=== PATIENT | male | born 1965 | race Caucasian/White ===

== ENCOUNTER 2017-07-27 14:16 | Day surgery (SDC) | payer BC ==
[2017-07-20 16:55] LABS: BASOPHILS % (AUTO) 0.3 % (0-1); EOSINOPHILS # (AUTO) 0.1 X10'3 (0-0.9); EOSINOPHILS % (AUTO) 1.9 % (0-6); HEMATOCRIT 51.2 % (42.0-52.0); HEMOGLOBIN 17.6 g/dl (14.0-17.9); LYMPHOCYTES # (AUTO) 1.2 X10'3 (1.1-4.8); LYMPHOCYTES % (AUTO) 16.1 % (21-51); MEAN CORPUSCULAR HEMOGLOBIN 31.9 PG (27.0-31.0); MEAN CORPUSCULAR HGB CONC 34.4 % (33.0-36.5); MEAN CORPUSCULAR VOLUME 92.6 FL (78-98); MEAN PLATELET VOLUME 8.4 FL (7.4-10.4); MONOCYTES # (AUTO) 0.7 X10'3 (0-0.9); MONOCYTES % (AUTO) 9.1 % (2-12); NEUTROPHILS # (AUTO) 5.4 X10'3 (1.8-7.7); NEUTROPHILS % (AUTO) 72.6 % (42-75); PLATELET COUNT 145 X10'3 (140-440); RED BLOOD COUNT 5.53 X10'6 (4.70-6.10); WHITE BLOOD COUNT 7.5 X10'3 (4.5-11.0)
[2017-07-20 17:01] LABS: ALBUMIN 3.8 G/DL (3.4-5.0); ANION GAP 8 (8-16); BLOOD UREA NITROGEN 15 MG/DL (7-18); BUN/CREATININE RATIO 11.2 (5.4-32.0); CALCIUM 8.7 MG/DL (8.5-10.1); CHLORIDE 104 MMOL/L (99-107); CREATININE 1.34 MG/DL (0.60-1.10); GLUCOSE 91 MG/DL (70-104); SODIUM 142 MMOL/L (135-145); TOTAL CARBON DIOXIDE 30.4 MMOL/L (24-32); eGFR 56 ML/MIN
[2017-07-20 17:03] LABS: INR 1.1 INR; PARTIAL THROMBOPLASTIN TIME 26 SECONDS (22-32); PROTHROMBIN TIME 11.7 SECONDS (9.0-12.0)
[~2017-07-27] VITALS: Ht 180.3 cm; Wt 118.2 kg
[2017-07-27] VITALS (8 sets, daily range): BP systolic 142–194; BP diastolic 92–140
[2017-07-27] MEDS ORDERED: LORazepam 0.5 MG tablet PO PRN (14:35)
[2017-07-27] MEDS ORDERED: normal saline 1000ml 1,000 ML IV SCH ×2 (14:35→19:05)
[2017-07-27] MEDS ORDERED: diphenhydrAMINE 25mg capsule PO PRN (14:35)
[2017-07-27] MEDS ORDERED: METO25TA6 PO (14:55)
[2017-07-27] MEDS ORDERED: FLO0.4C PO (14:55)
[2017-07-27] MEDS ORDERED: NITR0.4T51 SL (14:55)
[2017-07-27] MEDS ORDERED: FURO-150 PO (14:55)
[2017-07-27] MEDS ORDERED: ASPI-12 PO (14:55)
[2017-07-27] MEDS ORDERED: ATOR20TA PO (14:55)
[2017-07-27] MEDS ORDERED: AZIL1TAB2 PO (14:55)
[2017-07-27] MEDS ORDERED: LIDOcaine 1% (10mg/ml) 2ml vial ONE (15:32)
[2017-07-27] MEDS ORDERED: fentaNYL/PF 50MCG/1 ML 2ML syringe ONE (16:40)
[2017-07-27] MEDS ORDERED: midazolam 2 mg/2 ml injection ONE ×2 (16:41→17:57)
[2017-07-27] MEDS ORDERED: iohexol 350MG/ML 100ml bottle IV ONE (17:18)
[2017-07-27] MEDS ORDERED: LIDOcaine 1% 30ml preserv. free vial ONE (17:19)
[2017-07-27] MEDS ORDERED: hydrALAZINE 20mg/ml inj. IV ONE (18:04)
[2017-07-27] MEDS ORDERED: OXAZEpam 15mg capsule PO PRN (19:05)
[2017-07-27] MEDS ORDERED: ondansetron/PF 4mg/2ml inj IV PRN (19:05)
[2017-07-27] MEDS ORDERED: proCHLORperazine 10 MG/2 ml inj IV PRN (19:05)
== END 2017-07-27 20:30 | disposition home or self-care (01) ==
LOC: SSTAY O 14:16
PROVIDERS: ATTEND Internal Medicine Interventional Cardiology
DX: I25.118 Atherosclerotic heart disease of native coronary artery with other forms of angina pectoris (principal); I10 Essential (primary) hypertension; E78.5 Hyperlipidemia, unspecified; G47.33 Obstructive sleep apnea (adult) (pediatric); N40.0 Benign prostatic hyperplasia without lower urinary tract symptoms; Z72.89 Other problems related to lifestyle; Z79.01 Long term (current) use of anticoagulants; Z79.82 Long term (current) use of aspirin; Z85.820 Personal history of malignant melanoma of skin; Z79.899 Other long term (current) drug therapy; Z98.890 Other specified postprocedural states
CPT/HCPCS: 36415; 80048; 85025; 85610; 85730; 93005; 93458; 99152; A6257; C1769; J0360; J1644; J2250; J3010; J3490; J7030; Q0163; Q9967; A4620

== ENCOUNTER 2019-04-17 17:49 | Inpatient (IN) | payer BC, OTHER ==
[~2019-04-17] VITALS: Ht 180.3 cm; Wt 117.3 kg
[~2019-04-17 17:49] MED LIST: ASPI-12 PO; ATOR20TA PO; AZIL1TAB2 PO; FLO0.4C PO; FURO-150 PO; METO25TA6 PO; NITR0.4T51 SL
[2019-04-17 18:55] LABS: BASOPHILS % (AUTO) 0.1 % (0-1); EOSINOPHILS # (AUTO) 0.1 X10'3 (0-0.9); EOSINOPHILS % (AUTO) 0.5 % (0-6); HEMATOCRIT 55.1 % (42.0-52.0); LYMPHOCYTES # (AUTO) 0.9 X10'3 (1.1-4.8); LYMPHOCYTES % (AUTO) 5.9 % (21-51); MEAN CORPUSCULAR HEMOGLOBIN 34.5 PG (27.0-31.0); MEAN CORPUSCULAR HGB CONC 34.8 g/dL (33.0-36.5); MEAN CORPUSCULAR VOLUME 99.3 FL (78-98); MEAN PLATELET VOLUME 8.1 FL (7.4-10.4); MONOCYTES # (AUTO) 1.3 X10'3 (0-0.9); MONOCYTES % (AUTO) 9.2 % (2-12); NEUTROPHILS # (AUTO) 12.4 X10'3 (1.8-7.7); NEUTROPHILS % (AUTO) 84.3 % (42-75); PLATELET COUNT 190 X10'3 (140-440); RED BLOOD COUNT 5.54 X10'6 (4.70-6.10); RED CELL DISTRIBUTION WIDTH 13.5 % (11.5-14.5); WHITE BLOOD COUNT 14.6 X10'3 (4.5-11.0)
[2019-04-17 19:03] LABS: HEMOGLOBIN 19.1 g/dl (14.0-17.9)
[2019-04-17 19:09] LABS: ALANINE AMINOTRANSFERASE 105 U/L (12-78); ALKALINE PHOSPHATASE 82 IU/L (46-116); ANION GAP 12 (8-16); ASPARTATE AMINO TRANSFERASE 62 U/L (10-37); BILIRUBIN,TOTAL 0.9 MG/DL (0.1-1.0); BLOOD UREA NITROGEN 11 MG/DL (7-18); BUN/CREATININE RATIO 8.9 (5.4-32.0); CALCIUM 8.9 MG/DL (8.5-10.1); CHLORIDE 99 MMOL/L (99-107); CREATININE 1.23 MG/DL (0.60-1.10); GLUCOSE 140 MG/DL (70-104); POTASSIUM 3.6 MMOL/L (3.5-5.1); SODIUM 137 MMOL/L (135-145); TOTAL CARBON DIOXIDE 26.1 MMOL/L (24-32); TOTAL PROTEIN 7.9 G/DL (6.4-8.2); eGFR 62 ML/MIN
[2019-04-17 19:18] LABS: LIPASE 1298 U/L (73-393)
[2019-04-17] MEDS ORDERED: morphine 4 MG/ML inj SYRINge IV ONE (20:15)
[2019-04-17] MEDS ORDERED: ondansetron/PF 4mg/2ml inj IV ONE (20:15)
[2019-04-17 20:53] LABS: TROPONIN I < 0.04 NG/ML (0.0-0.05)
[2019-04-17] MEDS ORDERED: normal saline 1000ML IV soln IVB ONE (21:05)
[2019-04-17] MEDS ORDERED: furosemide 10 MG/1 ML 10ml inj IV ONE (21:10)
[2019-04-17 21:15] LABS: CLARITY,URINE CLEAR (Clear); COLOR,URINE YELLOW (Yellow); GLUCOSE, URINE NEGATIVE (Neg); KETONES,URINE 15 mg/dl (Neg); LEUKOCYTE ESTERASE ,URINE NEGATIVE (Neg); NITRITES, URINE NEGATIVE (Neg); OCCULT BLOOD,URINE TRACE-INTACT (Neg); PROTEIN,URINE 100 mg/dl (Neg); UROBILINOGEN,URINE 0.2 E.U/dL (0.2-1.0)
[2019-04-17 21:16] LABS: UA COLLECTION TYPE URINAL
[2019-04-17 21:22] LABS: URINE AMPHETAMINE SCREEN NEGATIVE (Neg); URINE BARBITUATE SCREEN NEGATIVE (Neg); URINE BENZODIAZEPINES SCREEN NEGATIVE (Neg); URINE CANNABINOID SCREEN NEGATIVE (Neg); URINE COCAINE SCREEN NEGATIVE (Neg); URINE METHADONE SCREEN NEGATIVE (Neg); URINE OPIATE SCREEN NEGATIVE (Neg); URINE PHENCYCLIDINE SCREEN NEGATIVE (Neg)
[2019-04-17 21:33] LABS: BACTERIA,URINE NONE SEEN /HPF (Neg); MUCUS STRANDS FEW /LPF (Neg); RBC,URINE 0-2 /HPF (0-2); SQUAMOUS EPITHELIAL CELL,UR FEW /LPF (FEW); WBC,URINE 0-4 /HPF (0-4)
--- NOTE | 2019-04-17 21:54 | NUR ---
cory reddy reports pt to be admitted.
[2019-04-17] MEDS ORDERED: LORazepam 2 mg/ml vial IV ONE (21:55)
[2019-04-17] MEDS ORDERED: NO HOME MEDS (21:58)
[2019-04-17] MEDS ORDERED: GABA600T13 PO (22:11)
[2019-04-17] MEDS ORDERED: PANT-47 PO (22:11)
[2019-04-17] MEDS ORDERED: ASPI-1094 PO (22:11)
[2019-04-17] MEDS ORDERED: BUSP10TA11 PO (22:11)
[2019-04-17] MEDS ORDERED: BACL20TA PO (22:11)
--- NOTE | 2019-04-17 22:47 | NUR ---
DR. GILL AT [facility] FOR ADMISSION. PT GIVEN ATIVAN 1 MG FOR ANXIETY. PT REPORTS HEAVY DRINKING OF ETOH OVER PAST MONTH AND 1/2. BP REMAINS ZANE 205/150 W HR 112
[2019-04-17] MEDS ORDERED: ondansetron/PF 4mg/2ml inj IV PRN (23:00)
[2019-04-17] MEDS ORDERED: thiamine inj. 100 MG in normal saline 100ml IV soln 100 ML IV ONE (23:05)
[2019-04-17] MEDS ORDERED: LORazepam 2 mg/ml vial IV PRN (23:05)
[2019-04-17] MEDS ORDERED: diltiazem-NS 100mg/100ml 100 ML IV SCH (23:05)
[2019-04-17] MEDS ORDERED: nitroGLYCERIN 0.4mg/hour patch TD ONE (23:35)
[2019-04-18] VITALS (21 sets, daily range): BP systolic 139–182; BP diastolic 60–125
--- NOTE | 2019-04-18 00:15 | NUR ---
Dr. Parks at bedside stated that patient required theraptic phlebotomy and requied 450ml of blood to be removed. 16G IV placed 15 30ml removed and dicarded. Patient remined stable throughtout.
[2019-04-18] MEDS: LORazepam 2 mg/ml vial IV PRN ×2 (00:16→04:22)
[2019-04-18] MEDS: morphine 2 MG/ML inj. syringe IV PRN ×2 (00:19→20:06)
--- NOTE | 2019-04-18 01:44 | NUR ---
Patient arrived on unit at approximately 0100. Vital signs are 98.5, HR 126, 97% RA, RR 24, Bp 182/111. Charly is aware, will continue to monitor.
--- NOTE | 2019-04-18 01:54 | NUR ---
Updated Dr. Parks of patient current vital signs. See vitals charted in vitals intervention.
[2019-04-18] MEDS ORDERED: diltiazem-NS 100mg/100ml 100 ML IV SCH (03:24)
--- NOTE | 2019-04-18 04:27 | NUR ---
Updated Dr. Parks on patient's HR sustaining 120's. He is ok with patient having this HR for now due to his alcoholism. He is also aware of the patient's BP and is ok with these numbers at this time. Will continue to monitor.
[2019-04-18 05:55] LABS: BASOPHILS % (AUTO) 0.3 % (0-1); EOSINOPHILS # (AUTO) 0.1 X10'3 (0-0.9); EOSINOPHILS % (AUTO) 0.9 % (0-6); HEMATOCRIT 48.3 % (42.0-52.0); HEMOGLOBIN 16.9 g/dl (14.0-17.9); LYMPHOCYTES # (AUTO) 0.9 X10'3 (1.1-4.8); LYMPHOCYTES % (AUTO) 6.4 % (21-51); MEAN CORPUSCULAR HEMOGLOBIN 34.8 PG (27.0-31.0); MEAN CORPUSCULAR HGB CONC 35.1 g/dL (33.0-36.5); MEAN CORPUSCULAR VOLUME 99.2 FL (78-98); MEAN PLATELET VOLUME 7.9 FL (7.4-10.4); MONOCYTES # (AUTO) 1.2 X10'3 (0-0.9); MONOCYTES % (AUTO) 8.8 % (2-12); NEUTROPHILS # (AUTO) 11.3 X10'3 (1.8-7.7); NEUTROPHILS % (AUTO) 83.6 % (42-75); PLATELET COUNT 165 X10'3 (140-440); RED BLOOD COUNT 4.87 X10'6 (4.70-6.10); RED CELL DISTRIBUTION WIDTH 13.8 % (11.5-14.5); WHITE BLOOD COUNT 13.5 X10'3 (4.5-11.0)
--- NOTE | 2019-04-18 06:20 | NUR ---
Problems reprioritized. Patient report given, questions answered & plan of care reviewed with ARIANA Oglesby.
--- NOTE | 2019-04-18 06:24 | NUR ---
Patient in room PCU 3024A. I have received report from Juhi LANE and had the opportunity to ask questions and assume patient care.
[2019-04-18 06:31] LABS: ALBUMIN 3.3 G/DL (3.4-5.0); ANION GAP 10 (8-16); BLOOD UREA NITROGEN 13 MG/DL (7-18); BUN/CREATININE RATIO 10.4 (5.4-32.0); CALCIUM 8.1 MG/DL (8.5-10.1); CHLORIDE 100 MMOL/L (99-107); CREATININE 1.25 MG/DL (0.60-1.10); GLUCOSE 135 MG/DL (70-104); LIPASE 852 U/L (73-393); POTASSIUM 3.8 MMOL/L (3.5-5.1); SODIUM 137 MMOL/L (135-145); TOTAL CARBON DIOXIDE 26.7 MMOL/L (24-32); eGFR 61 ML/MIN
[2019-04-18] MEDS: heparin, porcine 5000 units/ml vial SQ SCH ×2 (07:21→19:55)
[2019-04-18] MEDS: pantoprazole 40 MG vial IV SCH ×2 (07:21→19:55)
[2019-04-18] MEDS: baclofen 10mg tablet PO SCH ×3 (07:30→19:54)
[2019-04-18] MEDS: aspirin 325mg tablet, delayed-release (Ecotrin) PO SCH ×2 (07:30→09:19)
[2019-04-18] MEDS: gabapentin 300mg capsule PO SCH ×4 (07:30→20:41)
[2019-04-18] MEDS ORDERED: busPIRone 5mg tablet PO SCH (08:00)
--- NOTE | 2019-04-18 08:15 | NUR ---
Aj Ruiz MD PAGER ID: [phone] MESSAGE: Reny HUNT. Devonte Ochoa [phone]. Pt is requesting to eat. NPO from ED, they did a PO challenge and he said he tolerated applesauce and jello without vomiting. Would you like a diet order or keep NPO?
--- NOTE | 2019-04-18 08:20 | NUR ---
Spoke with Dr. Rocha regarding patients request for a diet. New orders: Clear Liquid Diet, patient to consume slowly if any pain is noted stop consuming the clear liquids and notify MD. Will inform the primary RN Reny.
[2019-04-18] MEDS ORDERED: LORazepam 1 MG tablet PO PRN (09:10)
--- NOTE | 2019-04-18 11:20 | NUR ---
Paged Dr Rocha PAGER ID: [phone] MESSAGE: Reny HUNT. Devonte Ochoa [phone]. Pt is requesting order for medication you had spoken to him earlier about for his hiccups. Thank you!
[2019-04-18] MEDS ORDERED: chlorproMAZINE 25mg/ml inj. IM PRN (11:35)
[2019-04-18] MEDS ORDERED: chlorproMAZINE 25mg tablet PO PRN (11:35)
[2019-04-18] MEDS ORDERED: CHLORPROMAZINE IV PRN (12:05)
[2019-04-18] MEDS ORDERED: NORMAL SALINE IV PRN (12:05)
[2019-04-18] MEDS: diltiazem 30mg tablet PO SCH ×3 (12:38→23:11)
--- NOTE | 2019-04-18 12:38 | NUR ---
New orders from Dr Rocha for Cardizem PO 30 mg every 8 hrs, starting now; new order for cardizem gtt at 5 ml/hr down from 10ml/hr; and labetalol 10 mg IV q10 min for SBP> 160 and diastolic >100 Addendum: 04/18/19 at 1302 by Reny Nina RN CORRECTION. LABETALOL PARAMETERS ARE FOR SBP>160 OR DIASTOLIC >100
[2019-04-18] MEDS: labetalol 20mg/4ml (5mg/ml) syringe IV PRN ×4 (12:42→23:12)
[2019-04-18] MEDS ORDERED: magnesium hydroxide 30ml (MOM) UD suspension PO PRN (13:05)
--- NOTE | 2019-04-18 13:10 | NUR ---
Patients BP is 159/111, primary RN Reny has requested the PRN Labetolol 10mg (2mL) IVP be given to patient. Labetolol was given at 1307 but the medication scan did not save. Will inform the primary RN and continue to monitor patient until RN is back from lunch.
--- NOTE | 2019-04-18 14:36 | NUR ---
Resource nurse changed Cardizem gtt to 5 mls from 10 per MD order, and now order from MD to D/C gtt entirely. ONLY wanted the 30 mg Cardizem tab at 12:38 pm and then q8hrs from then, not a PO one hour before discontinuing gtt.
--- NOTE | 2019-04-18 18:33 | NUR ---
Problems reprioritized. Patient report given, questions answered & plan of care reviewed with Monik LANE.
--- NOTE | 2019-04-18 18:40 | NUR ---
Patient in room PCU 3024. I have received report from ARIANA Oglesby and had the opportunity to ask questions and assume patient care.
[2019-04-18] MEDS: docusate sod 100mg capsule PO SCH (19:54)
[2019-04-18] MEDS: busPIRone 5mg tablet PO SCH (20:41)
[2019-04-19] VITALS (11 sets, daily range): BP systolic 137–177; BP diastolic 89–126
[2019-04-19] MEDS: labetalol 20mg/4ml (5mg/ml) syringe IV PRN ×7 (01:39→23:14)
[2019-04-19] MEDS: LORazepam 2 mg/ml vial IV PRN ×2 (01:40→19:45)
--- NOTE | 2019-04-19 03:20 | NUR ---
PRN Labetalol given per MD order for high diastolic BPs: @2008 for BP of 154/125 @2312 for BP of 149/101 @0139 for BP of 158/110 Most recent result @0230 is 137/89. Past Results are recorded in routine vital signs section Will continue to monitor closely.
[2019-04-19] MEDS ORDERED: diltiazem-NS 100mg/100ml 100 ML IV SCH (03:24)
[2019-04-19 06:06] LABS: BASOPHILS % (AUTO) 0.4 % (0-1); EOSINOPHILS # (AUTO) 0.4 X10'3 (0-0.9); EOSINOPHILS % (AUTO) 3.9 % (0-6); HEMATOCRIT 43.8 % (42.0-52.0); HEMOGLOBIN 15.2 g/dl (14.0-17.9); LYMPHOCYTES % (AUTO) 11.1 % (21-51); MEAN CORPUSCULAR HGB CONC 34.6 g/dL (33.0-36.5); MEAN CORPUSCULAR VOLUME 101.1 FL (78-98); MEAN PLATELET VOLUME 8.1 FL (7.4-10.4); MONOCYTES % (AUTO) 10.8 % (2-12); NEUTROPHILS % (AUTO) 73.8 % (42-75); PLATELET COUNT 132 X10'3 (140-440); RED BLOOD COUNT 4.34 X10'6 (4.70-6.10); RED CELL DISTRIBUTION WIDTH 13.6 % (11.5-14.5); WHITE BLOOD COUNT 9.5 X10'3 (4.5-11.0)
[2019-04-19 06:37] LABS: ALANINE AMINOTRANSFERASE 55 U/L (12-78); ALBUMIN 2.9 G/DL (3.4-5.0); ALBUMIN/GLOBULIN RATIO 0.9 (1.1-1.5); ALKALINE PHOSPHATASE 56 IU/L (46-116); ANION GAP 6 (8-16); ASPARTATE AMINO TRANSFERASE 27 U/L (10-37); BILIRUBIN,TOTAL 0.8 MG/DL (0.1-1.0); BLOOD UREA NITROGEN 14 MG/DL (7-18); BUN/CREATININE RATIO 9.2 (5.4-32.0); CHLORIDE 102 MMOL/L (99-107); CREATININE 1.53 MG/DL (0.60-1.10); GLUCOSE 103 MG/DL (70-104); LIPASE 415 U/L (73-393); POTASSIUM 3.4 MMOL/L (3.5-5.1); SODIUM 140 MMOL/L (135-145); TOTAL CARBON DIOXIDE 31.6 MMOL/L (24-32); TOTAL PROTEIN 6.3 G/DL (6.4-8.2); eGFR 48 ML/MIN
--- NOTE | 2019-04-19 06:44 | NUR ---
Patient in room PCU 3024. I have received report from ARIANA Baca and had the opportunity to ask questions and assume patient care.
--- NOTE | 2019-04-19 06:55 | NUR ---
Patient in room PCU 3024. I have received report from ARIANA HERRON and had the opportunity to ask questions and assume patient care.
--- NOTE | 2019-04-19 07:30 | NUR ---
PAGER ID: [phone] MESSAGE: DR. JUNIOR, 3907Z/JEF, K+ 3,4. NO ORDERS TO RPLACE. TRISTON [id number]. TY
[2019-04-19] MEDS: K and/or MAG REPLACEMENT MC SCH ×2 (08:05→20:00)
[2019-04-19] MEDS ORDERED: potassium Cl 20 mEq SR tablet PO PRN (08:05)
[2019-04-19] MEDS ORDERED: magnesium 4gm in 100ml NS 100 ML IV PRN (08:05)
[2019-04-19] MEDS ORDERED: potassium CL 10mEq/100ml bag 100 ML IV PRN (08:05)
[2019-04-19] MEDS ORDERED: magnesium Cl slow-release 64mg tablet PO PRN (08:05)
[2019-04-19] MEDS ORDERED: magnesium 2GM in 50ml NS 50 ML IV PRN (08:05)
[2019-04-19] MEDS: pantoprazole 40 MG vial IV SCH ×2 (08:15→19:45)
[2019-04-19] MEDS: aspirin 325mg tablet, delayed-release (Ecotrin) PO SCH (08:16)
[2019-04-19] MEDS: docusate sod 100mg capsule PO SCH ×2 (08:16→19:44)
[2019-04-19] MEDS: baclofen 10mg tablet PO SCH ×2 (08:16→19:44)
[2019-04-19] MEDS: diltiazem 30mg tablet PO SCH ×3 (08:16→23:14)
[2019-04-19] MEDS: gabapentin 300mg capsule PO SCH ×3 (08:18→21:30)
[2019-04-19] MEDS: heparin, porcine 5000 units/ml vial SQ SCH ×2 (08:19→19:44)
[2019-04-19] MEDS: potassium Cl 20 mEq SR tablet PO PRN ×3 (08:29→17:43)
[2019-04-19] MEDS: amLODIPine 5mg tablet PO SCH (14:09)
--- NOTE | 2019-04-19 14:15 | NUR ---
AT 1245, BP 178/112, LABETOLOL 10MG IV ADM, BP AT 1255 161/106, SECOND DOSE ADM.1320 BP 165/114, 3RD DOSE ADM, 1350 BP 159/113, 4TH DOSE ADM, DR. JUNIOR IN, 1410 BP 160/117. PO NORVASC ADM. CARDIZEM DOSE INCREASED. WILL CONTINUE TO MONITOR, ALLOW PO MEDS TO ASSIMILATE.
--- NOTE | 2019-04-19 17:48 | NUR ---
PAGER ID: [phone] MESSAGE: DR. JUNIOR, 1998B/JEF WAS UNDER IMPRESSION YOU WERE GOING TO CHANGE HIS DIET ORDER? REMAINS CLEAR LIQUID FOR DINNER. TRISTON [id number], TY
--- NOTE | 2019-04-19 18:23 | NUR ---
Patient in room PCU 3024. I have received report from ARIANA Baca and had the opportunity to ask questions and assume patient care.
[2019-04-19] MEDS ORDERED: ipratropium/albuterol 3ml nebule NEB PRN (18:30)
--- NOTE | 2019-04-19 18:30 | NUR ---
Problems reprioritized. Patient report given, questions answered & plan of care reviewed with ARIANA HERRON.
[2019-04-19] MEDS: morphine 2 MG/ML inj. syringe IV PRN ×2 (19:44→23:25)
[2019-04-19] MEDS: busPIRone 5mg tablet PO SCH (21:30)
[2019-04-19] MEDS ORDERED: LORazepam 2 mg/ml vial IV PRN (23:05)
[2019-04-20] VITALS (7 sets, daily range): BP systolic 139–164; BP diastolic 98–112
[2019-04-20] MEDS: labetalol 20mg/4ml (5mg/ml) syringe IV PRN ×3 (02:31→04:40)
[2019-04-20] MEDS: morphine 2 MG/ML inj. syringe IV PRN (03:59)
[2019-04-20] MEDS: LORazepam 2 mg/ml vial IV PRN ×2 (03:59→15:15)
[2019-04-20 05:14] LABS: BASOPHILS % (AUTO) 0.3 % (0-1); EOSINOPHILS # (AUTO) 0.3 X10'3 (0-0.9); EOSINOPHILS % (AUTO) 4.4 % (0-6); HEMATOCRIT 43.2 % (42.0-52.0); HEMOGLOBIN 14.8 g/dl (14.0-17.9); LYMPHOCYTES % (AUTO) 14.6 % (21-51); MEAN CORPUSCULAR HEMOGLOBIN 34.6 PG (27.0-31.0); MEAN CORPUSCULAR HGB CONC 34.2 g/dL (33.0-36.5); MEAN PLATELET VOLUME 7.9 FL (7.4-10.4); MONOCYTES # (AUTO) 0.8 X10'3 (0-0.9); MONOCYTES % (AUTO) 11.1 % (2-12); NEUTROPHILS # (AUTO) 4.9 X10'3 (1.8-7.7); NEUTROPHILS % (AUTO) 69.6 % (42-75); PLATELET COUNT 144 X10'3 (140-440); RED BLOOD COUNT 4.28 X10'6 (4.70-6.10); RED CELL DISTRIBUTION WIDTH 13.3 % (11.5-14.5); WHITE BLOOD COUNT 7.1 X10'3 (4.5-11.0)
[2019-04-20 05:26] LABS: ALANINE AMINOTRANSFERASE 53 U/L (12-78); ALBUMIN 2.7 G/DL (3.4-5.0); ALBUMIN/GLOBULIN RATIO 0.8 (1.1-1.5); ALKALINE PHOSPHATASE 55 IU/L (46-116); ANION GAP 6 (8-16); ASPARTATE AMINO TRANSFERASE 32 U/L (10-37); BILIRUBIN,TOTAL 0.4 MG/DL (0.1-1.0); BLOOD UREA NITROGEN 8 MG/DL (7-18); BUN/CREATININE RATIO 6.4 (5.4-32.0); CALCIUM 7.9 MG/DL (8.5-10.1); CHLORIDE 104 MMOL/L (99-107); CREATININE 1.25 MG/DL (0.60-1.10); GLUCOSE 124 MG/DL (70-104); LIPASE 399 U/L (73-393); POTASSIUM 3.8 MMOL/L (3.5-5.1); SODIUM 140 MMOL/L (135-145); TOTAL CARBON DIOXIDE 29.9 MMOL/L (24-32); TOTAL PROTEIN 6.2 G/DL (6.4-8.2); eGFR 61 ML/MIN
--- NOTE | 2019-04-20 05:58 | NUR ---
PRN Labetalol was given 5 times and follow up vital signs are recorded in intervention routine vital signs.
--- NOTE | 2019-04-20 06:30 | NUR ---
Problems reprioritized. Patient report given, questions answered & plan of care reviewed with ARIANA Barrios.
--- NOTE | 2019-04-20 06:35 | NUR ---
Patient in room PCU 3024. I have received report from ARIANA Jackson and had the opportunity to ask questions and assume patient care. Patient is currently resting in bed, bed locked and low, call light in reach, no acute distress, will continue to monitor.
[2019-04-20] MEDS: gabapentin 300mg capsule PO SCH ×2 (07:48→12:43)
[2019-04-20] MEDS: baclofen 10mg tablet PO SCH (07:48)
[2019-04-20] MEDS: docusate sod 100mg capsule PO SCH (07:48)
[2019-04-20] MEDS: diltiazem 30mg tablet PO SCH ×2 (07:48→15:15)
[2019-04-20] MEDS: amLODIPine 5mg tablet PO SCH (07:48)
[2019-04-20] MEDS: aspirin 325mg tablet, delayed-release (Ecotrin) PO SCH (07:48)
[2019-04-20] MEDS: pantoprazole 40 MG vial IV SCH (07:48)
[2019-04-20] MEDS: heparin, porcine 5000 units/ml vial SQ SCH (07:53)
[2019-04-20] MEDS: K and/or MAG REPLACEMENT MC SCH (07:59)
--- NOTE | 2019-04-20 08:02 | NUR ---
PAGER ID: [phone] MESSAGE: ARIANA Barrios, ext [phone], patient has expiratory wheezing, says he uses home inhaler, no PRN breathing treatments ordered.
[2019-04-20] MEDS ORDERED: ipratropium/albuterol 3ml nebule NEB PRN (08:05)
[2019-04-20] MEDS ORDERED: NOR5T PO (16:43)
[2019-04-20] MEDS ORDERED: DILT240C90 PO (16:43)
[2019-04-20] MEDS ORDERED: LORA-269 PO (16:43)
[2019-04-20] MEDS ORDERED: ALBU18HF2 IH (17:09)
--- NOTE | 2019-04-20 17:36 | NUR ---
Received orders for patient discharge to home. Patient belongings gatehred, telemetry removed, IV removed, catheter tip intact, hemostasis achieved, wrist band removed. Prescriptions called in to [facility] per patient request and patient given hard copy of prescriptions for ativan. Patient educated on new medications and verbalized understanding of teaching. Patient provided with discharge instructions, questions answered, patient family at bedside to transport home. Patient was able to ambulate self down to vehicle. Stable at time of discharge.
[2019-04-20] MEDS ORDERED: pantoprazole 40mg Tablet.DR PO SCH (20:00)
[2019-04-21] MEDS ORDERED: LORazepam 2 mg/ml vial IV PRN (23:05)
== END 2019-04-20 16:40 | disposition home or self-care (01) | DRG 438 ==
LOC: ER 17:50 → ED HOLD 23:17 → PCU 3S 04-18 01:01
PROVIDERS: ADMIT Internal Medicine; ATTEND Hospitalist
DX: K85.20 Alcohol induced acute pancreatitis without necrosis or infection (principal); N17.0 Acute kidney failure with tubular necrosis; I16.1 Hypertensive emergency; F10.239 Alcohol dependence with withdrawal, unspecified; J45.909 Unspecified asthma, uncomplicated; R06.6 Hiccough; Y90.9 Presence of alcohol in blood, level not specified; D72.829 Elevated white blood cell count, unspecified; I10 Essential (primary) hypertension; K22.4 Dyskinesia of esophagus; K21.9 Gastro-esophageal reflux disease without esophagitis
CPT/HCPCS: 36415; 71045; 74176; 80048; 80053; 80305; 81001; 83690; 83735; 83880; 84484; 85025; 87081; 93005; 93306; 94640; 94760; C9113; G0378; J1644; J1940; J2060; J2270; J2405; J3230; J3411; J3490; Q0161

== ENCOUNTER 2019-05-20 19:01 | Emergency (ER) | payer BC ==
[~2019-05-20] VITALS: Ht 180.3 cm; Wt 113.6 kg
[~2019-05-20 19:01] MED LIST changes: +ALBU18HF2 IH; +ASPI-1094 PO; -ASPI-12 PO; -ATOR20TA PO; -AZIL1TAB2 PO; +BACL20TA PO; +BUSP10TA11 PO; +DILT240C90 PO; -FLO0.4C PO; -FURO-150 PO; +GABA600T13 PO; +LORA-269 PO; -METO25TA6 PO; -NITR0.4T51 SL; +NOR5T PO; +PANT-47 PO
[2019-05-20] MEDS ORDERED: labetalol 20mg/4ml (5mg/ml) syringe IV ONE (19:15)
[2019-05-20] MEDS ORDERED: nitroGLYCERIN 1gm ointment UD TP ONE (19:15)
--- NOTE | 2019-05-20 19:19 | NUR ---
As walking to the room he misguesses where the doorway is and runs into the 1/2 door and it gives away and he is assisted to the ground. His breath smells of ETOH. Assisted to bed. made aware. Pt states he drank 2 glasses of alcohol Albino night at supper. Denies any alcohol today.
[2019-05-20 19:36] LABS: BASOPHILS % (AUTO) 0.4 % (0-1); EOSINOPHILS # (AUTO) 0.2 X10'3 (0-0.9); EOSINOPHILS % (AUTO) 1.8 % (0-6); HEMATOCRIT 53.2 % (42.0-52.0); LYMPHOCYTES # (AUTO) 1.9 X10'3 (1.1-4.8); MEAN CORPUSCULAR HEMOGLOBIN 34.2 PG (27.0-31.0); MEAN CORPUSCULAR HGB CONC 34.8 g/dL (33.0-36.5); MEAN CORPUSCULAR VOLUME 98.4 FL (78-98); MEAN PLATELET VOLUME 7.3 FL (7.4-10.4); MONOCYTES % (AUTO) 10.5 % (2-12); NEUTROPHILS # (AUTO) 6.1 X10'3 (1.8-7.7); NEUTROPHILS % (AUTO) 66.3 % (42-75); PLATELET COUNT 177 X10'3 (140-440); RED BLOOD COUNT 5.41 X10'6 (4.70-6.10); RED CELL DISTRIBUTION WIDTH 14.7 % (11.5-14.5); WHITE BLOOD COUNT 9.2 X10'3 (4.5-11.0)
[2019-05-20 19:44] LABS: HEMOGLOBIN 18.5 g/dl (14.0-17.9)
[2019-05-20 19:50] LABS: ALANINE AMINOTRANSFERASE 65 U/L (12-78); ALBUMIN 4.1 G/DL (3.4-5.0); ALBUMIN/GLOBULIN RATIO 1.1 (1.1-1.5); ALKALINE PHOSPHATASE 69 IU/L (46-116); ANION GAP 13 (8-16); ASPARTATE AMINO TRANSFERASE 46 U/L (10-37); BILIRUBIN,TOTAL 0.4 MG/DL (0.1-1.0); BLOOD UREA NITROGEN 12 MG/DL (7-18); BUN/CREATININE RATIO 9.6 (5.4-32.0); CALCIUM 8.9 MG/DL (8.5-10.1); CHLORIDE 103 MMOL/L (99-107); CREATININE 1.25 MG/DL (0.60-1.10); GLUCOSE 117 MG/DL (70-104); POTASSIUM 3.8 MMOL/L (3.5-5.1); SODIUM 142 MMOL/L (135-145); TOTAL CARBON DIOXIDE 26.1 MMOL/L (24-32); eGFR 61 ML/MIN
[2019-05-20 19:58] LABS: ETHANOL 0.272 GM/DL (0.0-0.010); LIPASE 460 U/L (73-393); MAGNESIUM 2.4 MG/DL (1.5-2.4)
[2019-05-20] MEDS ORDERED: sucralfate 1gm/10ml UD suspension PO STA (20:32)
[2019-05-20] MEDS ORDERED: mag hydrox/Alum hydrox/simeth 30ml oral suspension PO ONE (20:35)
[2019-05-20] MEDS ORDERED: LIDOcaine Viscous 15ml cup MM ONE (20:35)
[2019-05-20] MEDS ORDERED: chlorproMAZINE 25mg/ml inj. IV ONE (20:35)
[2019-05-20 20:51] LABS: URINE AMPHETAMINE SCREEN NEGATIVE (Neg); URINE BARBITUATE SCREEN NEGATIVE (Neg); URINE BENZODIAZEPINES SCREEN NEGATIVE (Neg); URINE CANNABINOID SCREEN NEGATIVE (Neg); URINE COCAINE SCREEN NEGATIVE (Neg); URINE METHADONE SCREEN NEGATIVE (Neg); URINE OPIATE SCREEN NEGATIVE (Neg); URINE PHENCYCLIDINE SCREEN NEGATIVE (Neg)
[2019-05-20 20:57] VITALS: BP 153/98
== END 2019-05-20 21:23 | disposition home or self-care (01) ==
LOC: ER 19:02
DX: F10.929 Alcohol use, unspecified with intoxication, unspecified (principal); R07.89 Other chest pain; R06.6 Hiccough; G62.9 Polyneuropathy, unspecified; I10 Essential (primary) hypertension; K21.9 Gastro-esophageal reflux disease without esophagitis; Z79.82 Long term (current) use of aspirin; Z79.899 Other long term (current) drug therapy; Y90.9 Presence of alcohol in blood, level not specified
CPT/HCPCS: 36415; 71045; 80053; 80305; 80320; 82948; 83690; 83735; 83880; 84484; 85025; 93005; 96374; 96375; 99285; J3230; J3490

== ENCOUNTER 2019-05-24 05:31 | Inpatient (IN) | payer BC ==
[~2019-05-24] VITALS: Ht 180.3 cm; Wt 113.6 kg
[2019-05-24 05:47] LABS: BASOPHILS % (AUTO) 0.3 % (0-1); EOSINOPHILS # (AUTO) 0.1 X10'3 (0-0.9); EOSINOPHILS % (AUTO) 1.2 % (0-6); HEMATOCRIT 52.8 % (42.0-52.0); LYMPHOCYTES # (AUTO) 1.4 X10'3 (1.1-4.8); LYMPHOCYTES % (AUTO) 12.8 % (21-51); MEAN CORPUSCULAR HEMOGLOBIN 33.9 PG (27.0-31.0); MEAN CORPUSCULAR HGB CONC 34.3 g/dL (33.0-36.5); MEAN CORPUSCULAR VOLUME 98.9 FL (78-98); MEAN PLATELET VOLUME 7.4 FL (7.4-10.4); MONOCYTES # (AUTO) 0.9 X10'3 (0-0.9); MONOCYTES % (AUTO) 8.1 % (2-12); NEUTROPHILS # (AUTO) 8.7 X10'3 (1.8-7.7); NEUTROPHILS % (AUTO) 77.6 % (42-75); PLATELET COUNT 145 X10'3 (140-440); RED BLOOD COUNT 5.34 X10'6 (4.70-6.10); RED CELL DISTRIBUTION WIDTH 15.1 % (11.5-14.5); WHITE BLOOD COUNT 11.2 X10'3 (4.5-11.0)
[2019-05-24 05:59] LABS: HEMOGLOBIN 18.1 g/dl (14.0-17.9)
[2019-05-24 06:03] LABS: ALANINE AMINOTRANSFERASE 64 U/L (12-78); ALBUMIN 3.9 G/DL (3.4-5.0); ALBUMIN/GLOBULIN RATIO 1.1 (1.1-1.5); ALKALINE PHOSPHATASE 71 IU/L (46-116); ANION GAP 11 (8-16); ASPARTATE AMINO TRANSFERASE 60 U/L (10-37); BILIRUBIN,TOTAL 0.8 MG/DL (0.1-1.0); BLOOD UREA NITROGEN 9 MG/DL (7-18); CALCIUM 8.2 MG/DL (8.5-10.1); CHLORIDE 103 MMOL/L (99-107); CREATININE 1.29 MG/DL (0.60-1.10); GLUCOSE 124 MG/DL (70-104); POTASSIUM 3.5 MMOL/L (3.5-5.1); SODIUM 140 MMOL/L (135-145); TOTAL CARBON DIOXIDE 25.7 MMOL/L (24-32); TOTAL PROTEIN 7.4 G/DL (6.4-8.2); eGFR 59 ML/MIN
[2019-05-24] MEDS ORDERED: LORazepam 2 mg/ml vial IV ONE (06:05)
[2019-05-24] MEDS ORDERED: LIDOcaine Viscous 15ml cup MM ONE (06:05)
[2019-05-24] MEDS ORDERED: mag hydrox/Alum hydrox/simeth 30ml oral suspension PO ONE (06:05)
[2019-05-24] MEDS ORDERED: metoclopramide 5 mg/ml inj IV ONE (06:05)
[2019-05-24] MEDS ORDERED: diphenhydrAMINE 50 mg/ml inj IV ONE (06:05)
[2019-05-24 06:10] LABS: MAGNESIUM 2.1 MG/DL (1.5-2.4)
[2019-05-24] MEDS ORDERED: aspirin 325mg tablet PO ONE (06:55)
[2019-05-24 07:06] LABS: ETHANOL 0.161 GM/DL (0.0-0.010)
[2019-05-24] MEDS ORDERED: LOSA50TA3 PO (07:11)
[2019-05-24] MEDS ORDERED: DILT180C53 PO (07:11)
[2019-05-24] MEDS ORDERED: cloNIDine 0.1 mg tablet PO PRN (07:55)
[2019-05-24] MEDS ORDERED: morphine 2 MG/ML inj. syringe IV PRN (07:55)
[2019-05-24] MEDS ORDERED: loperamide 2mg capsule PO PRN ×2 (07:55)
[2019-05-24] MEDS ORDERED: potassium Cl 20 mEq SR tablet PO PRN (07:55)
[2019-05-24] MEDS ORDERED: magnesium hydroxide 30ml (MOM) UD suspension PO PRN (07:55)
[2019-05-24] MEDS ORDERED: magnesium 2GM in 50ml NS 50 ML IV PRN (07:55)
[2019-05-24] MEDS ORDERED: haloperidol lactate 5mg/ml inj IM PRN (07:55)
[2019-05-24] MEDS ORDERED: cyclobenzaprine 10mg tablet PO PRN (07:55)
[2019-05-24] MEDS ORDERED: thiamine 100mg/ml 2ml inj. IV ONE (07:55)
[2019-05-24] MEDS ORDERED: dextrose 50%-water 50ml dispensing syringe IV PRN (07:55)
[2019-05-24] MEDS ORDERED: potassium CL 10mEq/100ml bag 100 ML IV PRN ×2 (07:55)
[2019-05-24] MEDS ORDERED: HYDROcodone/acetaminophen 5mg/325mg tablet PO PRN (07:55)
[2019-05-24] MEDS ORDERED: acetaminophen 650mg rectal suppository RC PRN (07:55)
[2019-05-24] MEDS ORDERED: magnesium 4gm in 100ml NS 100 ML IV PRN (07:55)
[2019-05-24] MEDS ORDERED: haloperidol 5mg tablet PO PRN (07:55)
[2019-05-24] MEDS ORDERED: diphenhydrAMINE 50 mg/ml inj IV PRN (07:55)
[2019-05-24] MEDS ORDERED: metoclopramide 5 mg/ml inj IV PRN (07:55)
[2019-05-24] MEDS ORDERED: magnesium Cl slow-release 64mg tablet PO PRN (07:55)
[2019-05-24] MEDS ORDERED: dicyclomine 10 MG capsule PO PRN (07:55)
[2019-05-24] MEDS ORDERED: acetaminophen 325mg tablet PO PRN ×2 (07:55)
[2019-05-24] MEDS ORDERED: diphenhydrAMINE 25mg capsule PO PRN (07:55)
[2019-05-24] MEDS ORDERED: mag hydrox/Alum hydrox/simeth 30ml oral suspension PO PRN (07:55)
[2019-05-24] MEDS ORDERED: HYDROcodone/acetaminophen 10/325mg tab PO PRN (07:55)
[2019-05-24] MEDS ORDERED: ondansetron/PF 4mg/2ml inj IV PRN (07:55)
[2019-05-24] MEDS ORDERED: LORazepam 2 mg/ml vial IV PRN (07:55)
[2019-05-24] MEDS ORDERED: bisacodyl 10mg suppository rectal RC PRN (07:55)
[2019-05-24] MEDS: K and/or MAG REPLACEMENT MC SCH ×2 (08:00→20:00)
[2019-05-24 08:34] LABS: LIPASE 565 U/L (73-393)
[2019-05-24] MEDS: dextrose 5%-normal saline 1,000 ML IV SCH ×2 (10:47→17:55)
[2019-05-24] MEDS: pantoprazole 40mg Tablet.DR PO SCH ×2 (10:47→21:04)
[2019-05-24] MEDS: losartan 50mg tablet PO SCH (10:48)
[2019-05-24] MEDS: diltiazem CD 180mg cap (once-daily) PO SCH (10:48)
[2019-05-24] MEDS: thiamine 100mg tablet PO SCH (10:48)
[2019-05-24] MEDS: folic acid 1mg tablet PO SCH (10:48)
[2019-05-24] MEDS: gabapentin 300mg capsule PO SCH ×2 (10:48→21:05)
[2019-05-24] MEDS: heparin, porcine 5000 units/ml vial SQ SCH ×2 (10:49→21:03)
[2019-05-24 11:20] LABS: CLARITY,URINE CLEAR (Clear); GLUCOSE, URINE NEGATIVE (Neg); KETONES,URINE 15 mg/dl (Neg); LEUKOCYTE ESTERASE ,URINE NEGATIVE (Neg); NITRITES, URINE NEGATIVE (Neg); OCCULT BLOOD,URINE NEGATIVE (Neg); PROTEIN,URINE NEGATIVE (Neg); UROBILINOGEN,URINE 0.2 E.U/dL (0.2-1.0)
[2019-05-24 11:21] LABS: COLOR,URINE DARK YELLOW (Yellow); UA COLLECTION TYPE URINAL
[2019-05-24 11:27] LABS: URINE AMPHETAMINE SCREEN NEGATIVE (Neg); URINE BARBITUATE SCREEN NEGATIVE (Neg); URINE BENZODIAZEPINES SCREEN NEGATIVE (Neg); URINE CANNABINOID SCREEN NEGATIVE (Neg); URINE COCAINE SCREEN NEGATIVE (Neg); URINE METHADONE SCREEN NEGATIVE (Neg); URINE OPIATE SCREEN NEGATIVE (Neg); URINE PHENCYCLIDINE SCREEN NEGATIVE (Neg)
--- NOTE | 2019-05-24 11:39 | NUR ---
RECEIVED REPORT FROM ARIANA LEACH. RADHA MILLER RN.
[2019-05-24 12:00] VITALS: BP 151/103
[2019-05-24 15:00] VITALS: BP 153/99
--- NOTE | 2019-05-24 15:45 | NUR ---
PAGER ID: [phone] MESSAGE: DR. JEONG, 3021A/JEF, MARIA LUISA COMING BACK, REQUESTING TREATMENT. TRISTON [id number]. TY.
--- NOTE | 2019-05-24 16:20 | NUR ---
PAGER ID: [phone] MESSAGE: DR. JEONG, 3021A/JEF CONTINUES TO ASK FOR TREATMENT FOR HICCUPS. TRISTON [id number]. TY
[2019-05-24] MEDS ORDERED: chlorproMAZINE 25mg tablet PO PRN ×2 (16:25→17:25)
[2019-05-24] MEDS ORDERED: chlorproMAZINE 25mg tablet PO ONE (17:25)
[2019-05-24 18:00] VITALS: BP 172/107
--- NOTE | 2019-05-24 18:35 | NUR ---
Patient in room PCU 3021. I have received report from Keven-ARIANA, and had the opportunity to ask questions and assume patient care.
--- NOTE | 2019-05-24 18:39 | NUR ---
Problems reprioritized. Patient report given, questions answered & plan of care reviewed with ARIANA CARDONA.
[2019-05-24] MEDS ORDERED: hydrALAZINE 20mg/ml inj. IV PRN (18:55)
[2019-05-24] MEDS ORDERED: regadenoson 0.4mg/5ml syringe IV PRN (18:55)
[2019-05-24] MEDS ORDERED: nitroGLYCERIN 0.4mg SUBLingual tab SL PRN (18:55)
[2019-05-24] MEDS ORDERED: metoprolol tartrate 1mg/ml inj IV PRN (18:55)
[2019-05-24] MEDS ORDERED: cloNIDine 0.1 mg tablet PO ONE (18:55)
[2019-05-24] MEDS ORDERED: aminophylline 250mg/10ml inj. IV PRN (18:55)
[2019-05-24] MEDS ORDERED: hydrALAZINE 20mg/ml inj. IV ONE (18:55)
[2019-05-24 20:00] VITALS: BP 145/70
[2019-05-24] MEDS ORDERED: busPIRone 5mg tablet PO SCH (21:00)
[2019-05-24] MEDS ORDERED: cloNIDine 0.1 mg tablet PO SCH (21:00)
[2019-05-24] MEDS: diatr meglu/diatrizoate 30ml oral sol.-(3 dose) bottle PO SCH (22:59)
[2019-05-25] VITALS (11 sets, daily range): BP systolic 118–150; BP diastolic 81–103
[2019-05-25] MEDS: dextrose 5%-normal saline 1,000 ML IV SCH ×2 (01:35→13:54)
[2019-05-25 05:16] LABS: BASOPHILS % (AUTO) 0.4 % (0-1); EOSINOPHILS # (AUTO) 0.1 X10'3 (0-0.9); EOSINOPHILS % (AUTO) 2.8 % (0-6); HEMATOCRIT 47.2 % (42.0-52.0); HEMOGLOBIN 16.4 g/dl (14.0-17.9); LYMPHOCYTES # (AUTO) 0.8 X10'3 (1.1-4.8); LYMPHOCYTES % (AUTO) 15.1 % (21-51); MEAN CORPUSCULAR HEMOGLOBIN 34.3 PG (27.0-31.0); MEAN CORPUSCULAR HGB CONC 34.7 g/dL (33.0-36.5); MEAN CORPUSCULAR VOLUME 98.7 FL (78-98); MEAN PLATELET VOLUME 7.6 FL (7.4-10.4); MONOCYTES # (AUTO) 0.6 X10'3 (0-0.9); MONOCYTES % (AUTO) 10.6 % (2-12); NEUTROPHILS # (AUTO) 3.8 X10'3 (1.8-7.7); NEUTROPHILS % (AUTO) 71.1 % (42-75); PLATELET COUNT 109 X10'3 (140-440); RED BLOOD COUNT 4.78 X10'6 (4.70-6.10); WHITE BLOOD COUNT 5.3 X10'3 (4.5-11.0)
[2019-05-25 05:30] LABS: ALANINE AMINOTRANSFERASE 52 U/L (12-78); ALBUMIN 3.1 G/DL (3.4-5.0); ALKALINE PHOSPHATASE 56 IU/L (46-116); ANION GAP 8 (8-16); ASPARTATE AMINO TRANSFERASE 41 U/L (10-37); BLOOD UREA NITROGEN 13 MG/DL (7-18); BUN/CREATININE RATIO 11.2 (5.4-32.0); CHLORIDE 105 MMOL/L (99-107); CREATININE 1.16 MG/DL (0.60-1.10); GLUCOSE 106 MG/DL (70-104); LIPASE 726 U/L (73-393); MAGNESIUM 2.1 MG/DL (1.5-2.4); POTASSIUM 3.3 MMOL/L (3.5-5.1); SODIUM 140 MMOL/L (135-145); TOTAL CARBON DIOXIDE 26.9 MMOL/L (24-32); TOTAL PROTEIN 6.3 G/DL (6.4-8.2); eGFR 66 ML/MIN
--- NOTE | 2019-05-25 06:00 | NUR ---
Patient in room PCU 3021. I have received report from Kenyatta LANE and had the opportunity to ask questions and assume patient care.
--- NOTE | 2019-05-25 06:13 | NUR ---
Problems reprioritized. Patient report given Kasey, questions answered & plan of care reviewed with
[2019-05-25] MEDS ORDERED: iohexol 300mg/ml 100ml inj. ONE (07:01)
[2019-05-25] MEDS: potassium Cl 20 mEq SR tablet PO PRN ×3 (07:08→16:23)
[2019-05-25] MEDS: folic acid 1mg tablet PO SCH (07:08)
[2019-05-25] MEDS: gabapentin 300mg capsule PO SCH (07:08)
[2019-05-25] MEDS: pantoprazole 40mg Tablet.DR PO SCH (07:08)
[2019-05-25] MEDS: losartan 50mg tablet PO SCH (07:08)
[2019-05-25] MEDS: diatr meglu/diatrizoate 30ml oral sol.-(3 dose) bottle PO SCH ×2 (07:10→09:05)
[2019-05-25] MEDS: heparin, porcine 5000 units/ml vial SQ SCH (07:10)
[2019-05-25] MEDS: thiamine 100mg tablet PO SCH (07:10)
[2019-05-25] MEDS: cloNIDine 0.1 mg tablet PO SCH ×2 (07:10→12:09)
[2019-05-25] MEDS: diltiazem CD 180mg cap (once-daily) PO SCH (07:10)
[2019-05-25] MEDS: K and/or MAG REPLACEMENT MC SCH (07:18)
[2019-05-25] MEDS ORDERED: THIA50TA10 PO (16:33)
[2019-05-25] MEDS ORDERED: CHLO25TA22 PO (16:33)
[2019-05-25] MEDS ORDERED: CLON0.1T2 PO (16:33)
[2019-05-25] MEDS ORDERED: PROP10TA10 PO (16:33)
[2019-05-25] MEDS ORDERED: LIPA1CAP18 PO (16:33)
[2019-05-25] MEDS ORDERED: FOLI0.4T2 PO (16:33)
[2019-05-25] MEDS ORDERED: LORA-269 PO (16:42)
--- NOTE | 2019-05-25 17:20 | NUR ---
Stable for discharge per MD orders, discharge instructions reviewed with pt and spouse, all questions answered. new prescriptions sent to [facility] in [place]. new apt made at Dr. Pratima montiel on June 15 at 0830, tele monitor and PIV discontinued, all belongings collected and sent with pt, left the unit in wheelchair at 1720 with nurses aide and spouse.
[2019-05-26] MEDS ORDERED: LORazepam 1 MG tablet PO PRN (07:55)
[2019-05-26] MEDS ORDERED: LORazepam 2 mg/ml vial IV PRN (07:55)
[2019-05-28] MEDS ORDERED: LORazepam 2 mg/ml vial IV PRN (07:55)
[2019-05-28] MEDS ORDERED: LORazepam 1 MG tablet PO PRN (07:55)
== END 2019-05-25 17:32 | disposition home or self-care (01) | DRG 280 ==
LOC: ER 05:32 → ED HOLD 07:53 → PCU 3S 11:25
PROVIDERS: ADMIT Family Medicine; ATTEND Family Medicine
PROC: 4A02XM4 Measurement of Cardiac Total Activity, External Approach (ICD-10-PCS; principal; 2019-05-25)
PROC: 3E033HZ Introduction of Radioactive Substance into Peripheral Vein, Percutaneous Approach (ICD-10-PCS; 2019-05-25)
PROC: BW211ZZ Computerized Tomography (CT Scan) of Abdomen and Pelvis using Low Osmolar Contrast (ICD-10-PCS; 2019-05-25)
DX: I21.A1 Myocardial infarction type 2 (principal); K85.90 Acute pancreatitis without necrosis or infection, unspecified; I16.1 Hypertensive emergency; K86.1 Other chronic pancreatitis; D75.1 Secondary polycythemia; F10.20 Alcohol dependence, uncomplicated; G47.33 Obstructive sleep apnea (adult) (pediatric); I10 Essential (primary) hypertension; K21.9 Gastro-esophageal reflux disease without esophagitis; F32.9 Major depressive disorder, single episode, unspecified; F41.9 Anxiety disorder, unspecified; R06.6 Hiccough; G62.9 Polyneuropathy, unspecified; Z79.899 Other long term (current) drug therapy; Z80.51 Family history of malignant neoplasm of kidney
CPT/HCPCS: 36415; 71045; 71260; 74177; 78452; 80053; 80305; 80320; 81003; 83690; 83735; 83880; 84100; 84484; 85025; 93005; 93017; 97161; 97530; A9500; G0378; J0360; J1200; J1644; J2060; J2765; J2785; J7042; Q0161; Q9963; Q9967

== ENCOUNTER 2019-07-03 23:10 | Emergency (ER) | payer BC ==
[~2019-07-03] VITALS: Ht 180.3 cm; Wt 116.3 kg
[~2019-07-03 23:10] MED LIST changes: -ALBU18HF2 IH; -ASPI-1094 PO; -BACL20TA PO; +CHLO25TA22 PO; +CLON0.1T2 PO; +DILT180C53 PO; -DILT240C90 PO; +LIPA1CAP18 PO; +LOSA50TA3 PO; -NOR5T PO; +THIA50TA10 PO
[2019-07-03] MEDS ORDERED: PROP10TA10 PO (23:51)
[2019-07-03] MEDS ORDERED: FOLI0.4T14 PO (23:51)
[2019-07-03 23:58] LABS: BASOPHILS % (AUTO) 0.2 % (0-1); EOSINOPHILS # (AUTO) 0.3 X10'3 (0-0.9); EOSINOPHILS % (AUTO) 4.1 % (0-6); HEMATOCRIT 51.9 % (42.0-52.0); HEMOGLOBIN 17.8 g/dl (14.0-17.9); LYMPHOCYTES # (AUTO) 1.9 X10'3 (1.1-4.8); LYMPHOCYTES % (AUTO) 23.9 % (21-51); MEAN CORPUSCULAR HEMOGLOBIN 33.4 PG (27.0-31.0); MEAN CORPUSCULAR HGB CONC 34.4 g/dL (33.0-36.5); MEAN CORPUSCULAR VOLUME 97.2 FL (78-98); MEAN PLATELET VOLUME 7.7 FL (7.4-10.4); MONOCYTES # (AUTO) 0.7 X10'3 (0-0.9); MONOCYTES % (AUTO) 9.3 % (2-12); NEUTROPHILS # (AUTO) 4.9 X10'3 (1.8-7.7); NEUTROPHILS % (AUTO) 62.5 % (42-75); PLATELET COUNT 144 X10'3 (140-440); RED BLOOD COUNT 5.34 X10'6 (4.70-6.10); RED CELL DISTRIBUTION WIDTH 14.9 % (11.5-14.5); WHITE BLOOD COUNT 7.9 X10'3 (4.5-11.0)
[2019-07-04 00:01] LABS: PARTIAL THROMBOPLASTIN TIME 28 SECONDS (22-32)
[2019-07-04 00:04] LABS: ALANINE AMINOTRANSFERASE 51 U/L (12-78); ALBUMIN 3.6 G/DL (3.4-5.0); ALBUMIN/GLOBULIN RATIO 1.1 (1.1-1.5); ALKALINE PHOSPHATASE 62 IU/L (46-116); ANION GAP 8 (8-16); ASPARTATE AMINO TRANSFERASE 43 U/L (10-37); BILIRUBIN,TOTAL 0.6 MG/DL (0.1-1.0); BLOOD UREA NITROGEN 6 MG/DL (7-18); BUN/CREATININE RATIO 4.4 (5.4-32.0); CALCIUM 8.3 MG/DL (8.5-10.1); CHLORIDE 104 MMOL/L (99-107); CREATININE 1.37 MG/DL (0.60-1.10); GLUCOSE 126 MG/DL (70-104); SODIUM 140 MMOL/L (135-145); TOTAL CARBON DIOXIDE 27.6 MMOL/L (24-32); TOTAL PROTEIN 6.9 G/DL (6.4-8.2); eGFR 55 ML/MIN
[2019-07-04 00:20] LABS: ETHANOL 0.195 GM/DL (0.0-0.010); LIPASE 278 U/L (73-393); MAGNESIUM 2.2 MG/DL (1.5-2.4)
[2019-07-04] MEDS ORDERED: furosemide 10 MG/1 ML 10ml inj IV ONE (00:30)
[2019-07-04] MEDS ORDERED: metoprolol tartrate 50mg tablet PO ONE (00:30)
[2019-07-04 00:34] LABS: URINE AMPHETAMINE SCREEN NEGATIVE (Neg); URINE BARBITUATE SCREEN NEGATIVE (Neg); URINE BENZODIAZEPINES SCREEN NEGATIVE (Neg); URINE CANNABINOID SCREEN NEGATIVE (Neg); URINE COCAINE SCREEN NEGATIVE (Neg); URINE METHADONE SCREEN NEGATIVE (Neg); URINE OPIATE SCREEN NEGATIVE (Neg); URINE PHENCYCLIDINE SCREEN NEGATIVE (Neg)
[2019-07-04 01:15] VITALS: BP 149/113
[2019-07-05] MEDS ORDERED: ONDA8TAB13 PO (16:49)
== END 2019-07-04 01:17 | disposition home or self-care (01) ==
LOC: ER 23:11
DX: F10.129 Alcohol abuse with intoxication, unspecified (principal); I11.0 Hypertensive heart disease with heart failure; G47.30 Sleep apnea, unspecified; I50.9 Heart failure, unspecified; G62.9 Polyneuropathy, unspecified; Z79.899 Other long term (current) drug therapy
CPT/HCPCS: 36415; 71045; 80053; 80305; 80320; 83690; 83735; 83880; 84484; 85025; 85610; 85730; 93005; 96374; 99285; J1940

== ENCOUNTER 2019-07-05 13:02 | Emergency (ER) | payer BC ==
[~2019-07-05] VITALS: Ht 172.7 cm; Wt 90.0 kg
[~2019-07-05 13:02] MED LIST changes: -CHLO25TA22 PO; -CLON0.1T2 PO; +FOLI0.4T14 PO; +PROP10TA10 PO
--- NOTE | 2019-07-05 13:49 | NUR ---
PATIENT IS ANXIOUS AND HAVING CHRONIC HICCUPS WITH RESP 24/MIN. O2 SAT 99% ON 2LPM/NC. STATES HE HAS HX GERD. SOB X 2 DAYS INCREASING PER PATIENT.
[2019-07-05] MEDS ORDERED: diphenhydrAMINE 50 mg/ml inj IV ONE (14:00)
[2019-07-05] MEDS ORDERED: LORazepam 2 mg/ml vial IV ONE (14:35)
[2019-07-05 14:50] LABS: BASOPHILS % (AUTO) 0.3 % (0-1); EOSINOPHILS # (AUTO) 0.1 X10'3 (0-0.9); EOSINOPHILS % (AUTO) 0.8 % (0-6); HEMATOCRIT 55.9 % (42.0-52.0); LYMPHOCYTES # (AUTO) 2.2 X10'3 (1.1-4.8); LYMPHOCYTES % (AUTO) 21.3 % (21-51); MEAN CORPUSCULAR HEMOGLOBIN 33.5 PG (27.0-31.0); MEAN CORPUSCULAR HGB CONC 34.2 g/dL (33.0-36.5); MEAN CORPUSCULAR VOLUME 97.8 FL (78-98); MEAN PLATELET VOLUME 7.8 FL (7.4-10.4); MONOCYTES # (AUTO) 0.9 X10'3 (0-0.9); NEUTROPHILS # (AUTO) 7.1 X10'3 (1.8-7.7); NEUTROPHILS % (AUTO) 68.6 % (42-75); PLATELET COUNT 212 X10'3 (140-440); RED BLOOD COUNT 5.72 X10'6 (4.70-6.10); RED CELL DISTRIBUTION WIDTH 15.2 % (11.5-14.5); WHITE BLOOD COUNT 10.3 X10'3 (4.5-11.0)
[2019-07-05 14:53] LABS: HEMOGLOBIN 19.1 g/dl (14.0-17.9)
[2019-07-05 14:59] VITALS: BP 151/115
--- NOTE | 2019-07-05 14:59 | NUR ---
Pt reports he has asthma and wanted to make sure it is added to his prior medical history. Pt reports he uses inhalers but did not bring them with him today.
[2019-07-05 15:03] LABS: ALANINE AMINOTRANSFERASE 53 U/L (12-78); ALBUMIN 3.9 G/DL (3.4-5.0); ALBUMIN/GLOBULIN RATIO 0.8 (1.1-1.5); ALKALINE PHOSPHATASE 67 IU/L (46-116); ANION GAP 10 (8-16); ASPARTATE AMINO TRANSFERASE 56 U/L (10-37); BILIRUBIN,TOTAL 0.5 MG/DL (0.1-1.0); BLOOD UREA NITROGEN 13 MG/DL (7-18); BUN/CREATININE RATIO 8.9 (5.4-32.0); CALCIUM 8.3 MG/DL (8.5-10.1); CHLORIDE 103 MMOL/L (99-107); CREATININE 1.46 MG/DL (0.60-1.10); GLUCOSE 103 MG/DL (70-104); POTASSIUM 3.9 MMOL/L (3.5-5.1); SODIUM 138 MMOL/L (135-145); TOTAL CARBON DIOXIDE 25.1 MMOL/L (24-32); TOTAL PROTEIN 8.5 G/DL (6.4-8.2); eGFR 51 ML/MIN
[2019-07-05 15:10] LABS: ETHANOL 0.197 GM/DL (0.0-0.010)
--- NOTE | 2019-07-05 15:46 | NUR ---
Pt is resting with even and unlabored respirations. Pt noted to have hiccups.
--- NOTE | 2019-07-05 16:19 | NUR ---
Dr. Fountain is in the room to discuss the findings with the patient.
[2019-07-05] MEDS ORDERED: ONDA8TAB13 PO (16:49)
== END 2019-07-05 17:10 | disposition home or self-care (01) ==
LOC: ER 13:02
DX: K21.9 Gastro-esophageal reflux disease without esophagitis (principal); R06.02 Shortness of breath; F10.129 Alcohol abuse with intoxication, unspecified; I11.0 Hypertensive heart disease with heart failure; I50.9 Heart failure, unspecified; G47.30 Sleep apnea, unspecified; G62.9 Polyneuropathy, unspecified; Z79.899 Other long term (current) drug therapy
CPT/HCPCS: 36415; 71045; 80053; 80320; 83880; 84484; 85025; 85610; 96374; 96375; 99285; J1200; J2060

== ENCOUNTER 2019-09-06 21:11 | Emergency (ER) | payer BC ==
[~2019-09-06] VITALS: Ht 180.3 cm; Wt 92.0 kg
[~2019-09-06 21:11] MED LIST changes: +ONDA8TAB13 PO
[2019-09-06 21:54] LABS: BASOPHILS # (AUTO) 0.1 X10'3 (0-0.2); BASOPHILS % (AUTO) 0.4 % (0-1); EOSINOPHILS # (AUTO) 0.3 X10'3 (0-0.9); EOSINOPHILS % (AUTO) 1.8 % (0-6); HEMATOCRIT 57.1 % (42.0-52.0); LYMPHOCYTES % (AUTO) 13.7 % (21-51); MEAN CORPUSCULAR HEMOGLOBIN 32.8 PG (27.0-31.0); MEAN CORPUSCULAR HGB CONC 33.7 g/dL (33.0-36.5); MEAN CORPUSCULAR VOLUME 97.3 FL (78-98); MEAN PLATELET VOLUME 7.5 FL (7.4-10.4); MONOCYTES # (AUTO) 1.4 X10'3 (0-0.9); MONOCYTES % (AUTO) 9.3 % (2-12); NEUTROPHILS # (AUTO) 10.9 X10'3 (1.8-7.7); NEUTROPHILS % (AUTO) 74.8 % (42-75); PLATELET COUNT 205 X10'3 (140-440); RED BLOOD COUNT 5.87 X10'6 (4.70-6.10); RED CELL DISTRIBUTION WIDTH 15.2 % (11.5-14.5); WHITE BLOOD COUNT 14.6 X10'3 (4.5-11.0)
[2019-09-06 21:57] LABS: HEMOGLOBIN 19.2 g/dl (14.0-17.9)
--- NOTE | 2019-09-06 21:59 | NUR ---
patient lying supine in bed eyes closed rr even un labored no observable s/s of acute stress/pain observed at this time will continue to monitor
--- NOTE | 2019-09-06 22:00 | NUR ---
Dr. Dodd at bedside assessing patient
[2019-09-06 22:02] LABS: ALANINE AMINOTRANSFERASE 104 U/L (12-78); ALBUMIN 3.8 G/DL (3.4-5.0); ALKALINE PHOSPHATASE 75 IU/L (46-116); ANION GAP 12 (8-16); ASPARTATE AMINO TRANSFERASE 90 U/L (10-37); BILIRUBIN,TOTAL 0.6 MG/DL (0.1-1.0); BLOOD UREA NITROGEN 11 MG/DL (7-18); BUN/CREATININE RATIO 7.8 (5.4-32.0); CALCIUM 8.6 MG/DL (8.5-10.1); CHLORIDE 105 MMOL/L (99-107); CREATININE 1.41 MG/DL (0.60-1.10); GLUCOSE 99 MG/DL (70-104); POTASSIUM 4.1 MMOL/L (3.5-5.1); SODIUM 142 MMOL/L (135-145); TOTAL PROTEIN 7.8 G/DL (6.4-8.2); eGFR 53 ML/MIN
[2019-09-06] MEDS ORDERED: normal saline 1000ML IV soln IVB ONE (22:05)
[2019-09-06 22:19] LABS: LIPASE 1281 U/L (73-393)
[2019-09-06 22:27] LABS: ETHANOL 0.368 GM/DL (0.0-0.010)
[2019-09-06] MEDS ORDERED: ondansetron/PF 4mg/2ml inj IV ONE (22:40)
[2019-09-06] MEDS ORDERED: ONDA4TAB6 PO (23:18)
[2019-09-06] MEDS ORDERED: SUCR1TAB34 PO (23:18)
--- NOTE | 2019-09-06 23:22 | NUR ---
discussed whether or not to hang second liter based on bp of 175/144. md shafer still wanted second liter to be given to pt. second liter susy.
[2019-09-07] MEDS ORDERED: sucralfate 1gm/10ml UD suspension PO STA (00:11)
[2019-09-07] MEDS ORDERED: LIDOcaine Viscous 15ml cup MM ONE (00:15)
[2019-09-07] MEDS ORDERED: mag hydrox/Alum hydrox/simeth 30ml oral suspension PO ONE (00:15)
[2019-09-07 01:11] VITALS: BP 168/126
== END 2019-09-07 01:03 | disposition home or self-care (01) ==
LOC: ER 21:11
DX: R07.89 Other chest pain (principal); K85.20 Alcohol induced acute pancreatitis without necrosis or infection; F10.129 Alcohol abuse with intoxication, unspecified; R11.2 Nausea with vomiting, unspecified; I50.9 Heart failure, unspecified; I11.0 Hypertensive heart disease with heart failure; G47.30 Sleep apnea, unspecified; K21.9 Gastro-esophageal reflux disease without esophagitis; Z79.899 Other long term (current) drug therapy; Y90.0 Blood alcohol level of less than 20 mg/100 ml
CPT/HCPCS: 36415; 71045; 80053; 80320; 83690; 84484; 85025; 93005; 96361; 96374; 99285; J2405; J7030

== ENCOUNTER 2023-02-02 16:33 | Emergency (ER) | payer BC ==
[~2023-02-02] VITALS: Ht 180.3 cm; Wt 108.1 kg
[~2023-02-02 16:33] MED LIST changes: +LOSA-416 PO; -LOSA50TA3 PO; +ONDA4TAB6 PO; +SUCR1TAB34 PO
[2023-02-02 16:50] LABS: BASOPHILS % (AUTO) 0.4 % (0-1); EOSINOPHILS # (AUTO) 0.2 X10'3 (0-0.9); EOSINOPHILS % (AUTO) 2.1 % (0-6); HEMATOCRIT 53.8 % (42.0-52.0); HEMOGLOBIN 17.1 g/dl (14.0-17.9); LYMPHOCYTES # (AUTO) 1.9 X10'3 (1.1-4.8); LYMPHOCYTES % (AUTO) 20.3 % (21-51); MEAN CORPUSCULAR HEMOGLOBIN 25.1 PG (27.0-31.0); MEAN CORPUSCULAR HGB CONC 31.7 g/dL (33.0-36.5); MEAN CORPUSCULAR VOLUME 79.1 FL (78-98); MEAN PLATELET VOLUME 8.3 FL (7.4-10.4); MONOCYTES % (AUTO) 10.9 % (2-12); NEUTROPHILS # (AUTO) 6.3 X10'3 (1.8-7.7); NEUTROPHILS % (AUTO) 66.3 % (42-75); PLATELET COUNT 203 X10'3 (140-440); RED BLOOD COUNT 6.79 X10'6 (4.70-6.10); RED CELL DISTRIBUTION WIDTH 20.1 % (11.5-14.5); WHITE BLOOD COUNT 9.6 X10'3 (4.5-11.0)
[2023-02-02 17:06] LABS: ALANINE AMINOTRANSFERASE 54 U/L (12-78); ALBUMIN 3.9 G/DL (3.4-5.0); ALBUMIN/GLOBULIN RATIO 1.2 (1.1-1.5); ALKALINE PHOSPHATASE 59 IU/L (46-116); ANION GAP 6 (8-16); ASPARTATE AMINO TRANSFERASE 27 U/L (10-37); BILIRUBIN,TOTAL 0.6 MG/DL (0.1-1.0); BLOOD UREA NITROGEN 20 MG/DL (7-18); CALCIUM 8.8 MG/DL (8.5-10.1); CHLORIDE 103 MMOL/L (99-107); CREATININE 1.43 MG/DL (0.60-1.10); GLUCOSE 84 MG/DL (70-104); POTASSIUM 4.3 MMOL/L (3.5-5.1); SODIUM 139 MMOL/L (135-145); TOTAL CARBON DIOXIDE 30.4 MMOL/L (24-32); TOTAL PROTEIN 7.2 G/DL (6.4-8.2); eCRCL 62 ML/MIN; eGFR 51 ML/MIN
[2023-02-02 17:28] LABS: MAGNESIUM 2.4 MG/DL (1.5-2.4)
[2023-02-02 17:32] LABS: ANISOCYTOSIS 3+; PLATELET ESTIMATE NORMAL; POLYCHROMASIA 1+
[2023-02-02 17:33] LABS: POIKILOCYTOSIS FEW
--- NOTE | 2023-02-02 17:50 | NUR ---
KOMAL RN ORIENTEE OBTAINED PT IV/RN NOTIFIED DEVON MONDRAGON. THIS RN AGREES WITH GENERAL ASSESSMENT PERFORMED BY KOMAL LANE.
[2023-02-02] MEDS ORDERED: ketamine 10mg/ml 20ml inj vial IV ONE (19:05)
[2023-02-02] MEDS ORDERED: labetalol 20mg/4ml (5mg/ml) syringe IV ONE ×2 (19:50→20:40)
[2023-02-02] MEDS ORDERED: CefTRIAXone 2gm/D5W 50ml BAG 50 ML IV STA (20:05)
[2023-02-02] MEDS ORDERED: ondansetron/PF 4mg/2ml inj IV ONE (20:10)
[2023-02-02 20:14] VITALS: PULSE 100; RESP 30; O2SAT 86
[2023-02-02] MEDS ORDERED: ipratropium/albuterol 3ml nebule ONE (20:15)
[2023-02-02] MEDS ORDERED: ipratropium/albuterol 3ml nebule NEB ONE (20:15)
[2023-02-02 20:26] VITALS: PULSE 121; RESP 32; O2SAT 88
[2023-02-02] MEDS ORDERED: labetalol 20mg/4ml (5mg/ml) syringe IV STA (20:26)
[2023-02-02] MEDS ORDERED: LORazepam 2 mg/ml vial IV ONE (20:30)
[2023-02-02 20:34] VITALS: PULSE 105; RESP 32; O2SAT 93
[2023-02-02 22:18] LABS: URINE AMPHETAMINE SCREEN NEGATIVE (Neg); URINE BARBITUATE SCREEN NEGATIVE (Neg); URINE BENZODIAZEPINES SCREEN NEGATIVE (Neg); URINE CANNABINOID SCREEN NEGATIVE (Neg); URINE COCAINE SCREEN NEGATIVE (Neg); URINE METHADONE SCREEN NEGATIVE (Neg); URINE OPIATE SCREEN NEGATIVE (Neg); URINE PHENCYCLIDINE SCREEN NEGATIVE (Neg)
--- NOTE | 2023-02-02 23:27 | NUR ---
PT AMBULATED TO AND FROM BATHROOM WITH NO VISUAL SIGNS OF DISTRESS NOR DISCOMFORT
--- NOTE | 2023-02-02 23:47 | NUR ---
PT O2 SAT DROP TO LOW 80S WHEN NC IS REMOVED AND PT IS ON ROOM AIR. PT EDUCATION GIVEN ON O2SAT AND KEEPING NC ON PT UNDERSTOOD WITH RETURN DEMO
--- NOTE | 2023-02-03 00:10 | NUR ---
Late entry: Verbal Order for Bipap received @ 02/02 order placed in [facility] @ 02/03 001
--- NOTE | 2023-02-03 01:40 | NUR ---
PT PLACED ONTO INPATIENT BED
[2023-02-03 07:02] VITALS: BP 132/97; PULSE 82; RESP 16; TEMP 97.7; O2SAT 95
--- NOTE | 2023-02-03 07:13 | NUR ---
ASSUMED PT CARE. PT RESTING IN NO DISTRESS. PT AWAKES EASILY. HE STATES HE STILL WANTS TO GO HOME. PT AMBULATED AROUND ED AND WENT TO THE BATHROOM. SPO2 IS 95% ON RA AFTER AMBULATION
--- NOTE | 2023-02-03 07:32 | NUR ---
PT SIGNED OUT AMA. MD AND PT SIGNED FORM.
== END 2023-02-03 07:46 | disposition left against medical advice (07) ==
LOC: ER 16:34
DX: T50.905A Adverse effect of unspecified drugs, medicaments and biological substances, initial encounter (principal); I48.20 Chronic atrial fibrillation, unspecified; K21.9 Gastro-esophageal reflux disease without esophagitis; I11.0 Hypertensive heart disease with heart failure; Z88.8 Allergy status to other drugs, medicaments and biological substances; Z79.899 Other long term (current) drug therapy; Z79.1 Long term (current) use of non-steroidal anti-inflammatories (NSAID); Z79.2 Long term (current) use of antibiotics
CPT/HCPCS: 36415; 71045; 80053; 80305; 83735; 84484; 85008; 85025; 92960; 93005; 94640; 96374; 96375; 99285; J2060; J2405; J3490; J7030; A4620